=== PATIENT | female | born 1960 | race Caucasian/White ===

== ENCOUNTER 2016-11-07 08:40 | Day surgery (SDC) | payer OTHER ==
[~2016-11-07 08:40] MED LIST: Buffered Lidocaine 0.9% SYRIN* 5 ML/SYR SYRINGE INTRADERM ONE; Famotidine IV* 10 MG/ML 2 ML (20 mg) IV ONE; Levalbuterol 0.63MG/3ML NEB INH ONE
[2016-11-07] MEDS ORDERED: Buffered Lidocaine 0.9% SYRIN* 5 ML/SYR SYRINGE ONE (09:26)
[2016-11-07] MEDS ORDERED: Levalbuterol 1.25MG/0.5ML NEB ONE ×2 (09:26→12:20)
[2016-11-07] MEDS ORDERED: Famotidine IV* 10 MG/ML 2 ML (20 mg) ONE (09:26)
[2016-11-07] MEDS ORDERED: fentaNYL* 50 MCG/ML 2 ML VIAL (100 MCG VIAL) ONE (10:15)
[2016-11-07] MEDS ORDERED: Midazolam* 1 MG/ML 5 ML VIAL (5 MG) ONE (10:15)
[2016-11-07] MEDS ORDERED: Dexamethasone IV* 4 MG/ML 1 ML (4 MG) ONE (10:15)
[2016-11-07] MEDS ORDERED: Lidocaine 2% PF * 5 ML VIAL ONE (10:15)
[2016-11-07] MEDS ORDERED: Ondansetron INJ* 2 MG/ML VIAL ONE (10:15)
[2016-11-07] MEDS ORDERED: Propofol* 10 MG/ML 20 ML BTL IV PUSH ONE (10:15)
[2016-11-07] MEDS ORDERED: Triamcinolone Acetonide* 40 MG/ML 1 ML VIAL ONE (10:36)
[2016-11-07] MEDS ORDERED: EPINEPHrine AMP 1 MG/ML ONE (10:36)
[2016-11-07] MEDS ORDERED: Lidocaine 1.5% EPI 1:200,000* 30 ML SDV ONE (10:37)
[2016-11-07] MEDS ORDERED: Ondansetron INJ* 2 MG/ML VIAL IV PRN (10:51)
[2016-11-07] MEDS ORDERED: fentaNYL* 50 MCG/ML 2 ML VIAL (100 MCG VIAL) IV PRN (10:51)
[2016-11-07] MEDS ORDERED: Levalbuterol 0.63MG/3ML NEB INH PRN (10:51)
[2016-11-07] MEDS ORDERED: Levalbuterol HFA INHALER* 1 PUFF MDI ONE (11:10)
[2016-11-07] MEDS ORDERED: EPHEDrine (Pressors)* 50 MG/ML VIAL ONE (11:10)
[2016-11-07 14:19] VITALS: BP 107/61
--- NOTE | 2016-11-08 05:17 | OP ---
DATE OF OPERATION: 11/07/16 - [facility] DATE OF : 62 SURGEON: Duglas Dimas MD ANESTHESIOLOGIST: Andrew Lee MD ANESTHESIA: General PRE-OP DIAGNOSIS: Vocal cord polyp with hoarseness, airway obstruction. POST-OP DIAGNOSIS: Vocal cord polyp with hoarseness, airway obstruction. OPERATIVE PROCEDURE: Suspension laryngoscopy, microscopy, excision of vocal cord polyp with advancement flap. BRIEF HISTORY: This 56-year-old with significant hoarseness, history of smoking , noted to have on laryngoscopy examination in the office a large vocal cord polyp. DESCRIPTION OF PROCEDURE: The patient was taken to the operating room, general anesthetic was given. The patient was intubated. Larynx was suspended. Microscope was utilized. 2% lidocaine with epinephrine was infiltrated in the mucosa on the left vocal cord. Scissors were then used to excise the polyp along the vocal margin of the mucosa. The mucosa was left as a flap and then advanced. The polyp was removed. It looked like an amorphous polyp, possibly a very firm Francisco's edema. Once the flap was in place, I infiltrated the surrounding area with Kenalog. Then small pledgets were placed. These were removed prior to extubation. The patient was extubated and sent to Recovery in stable condition. Instrument and sponge counts were correct. Blood loss minimal. [id number]/[facility] #: [id number] [facility]
== END 2016-11-07 14:00 | disposition home or self-care (01) ==
LOC: OR 08:40
PROVIDERS: ATTEND Otolaryngology
DX: J38.2 Nodules of vocal cords (principal); R49.0 Dysphonia; F17.210 Nicotine dependence, cigarettes, uncomplicated; E11.9 Type 2 diabetes mellitus without complications; Z79.84 Long term (current) use of oral hypoglycemic drugs; I10 Essential (primary) hypertension; G47.33 Obstructive sleep apnea (adult) (pediatric); E03.9 Hypothyroidism, unspecified; E78.5 Hyperlipidemia, unspecified
CPT/HCPCS: 88305; A9270-GY; J0171; J1100; J2250; J2405; J2704; J3010; J3301